=== PATIENT | female | born 1945 | race Caucasian/White ===

== ENCOUNTER 2020-09-13 14:39 | Emergency (ER) | payer MEDICARE, OTHER ==
[2020-09-13] MEDS ORDERED: Boostrix 0.5 ML (Tdap) VIAL ONE (16:09)
--- NOTE | 2020-09-13 16:18 | CT ---
CT HEAD WITHOUT CONTRAST: Date: 09/13/2020 HISTORY: Fall with injury to head. FINDINGS: Ventricles have normal size and position. There is no evidence of intracranial hemorrhage. No evidenc e of edema, mass, or infarct. Mild ischemic white matter changes. Small scalp hematoma over the right frontal bone. Paranasal sinuses appear clear. No evidence of skull fracture. IMPRESSION: No acute intracranial abnormality. POS: [facility]
--- NOTE | 2020-09-13 16:25 | CT ---
Exam: Facial bone CT without contrast HISTORY: Patient tripped and fell in parking lot. Contusion and swelling over the right eyebrow regio n. Uncontrolled bleeding. FINDINGS: There is a right frontal and periorbital hematoma. Bilateral ocular lenses are appropriately located. Both globes are intact. Retrobulbar fat is preserv ed. Symmetric attenuation of the optic nerves and ocular rectus muscles. Adequate aeration of the paranasal sinuses and mastoid air cells. No significant nasal soft tissue swelling. Nasal bones are intact. On the coronal reformatted images, bilateral ostiomeatal complexes are patent. Intact nasal septum. Osseous margins of the sinuses and orbits are maintained Zygomatic arches and pterygoid plates are intact. Mandible and maxilla is intact. Patient is edentulo us. Degenerative changes in the right temporomandibular joint space. Unremarkable upper cervical spine There are varying degrees of central canal stenosis and foraminal narrowing on the basis of degenerat vincent change IMPRESSION: 1. Right periorbital posttraumatic swelling and hematoma. 2. No evidence of a maxillofacial fracture.
== END 2020-09-13 16:45 | disposition home or self-care (01) ==
LOC: ERS 14:39
DX: S00.11XA Contusion of right eyelid and periocular area, initial encounter (principal); S00.83XA Contusion of other part of head, initial encounter; I10 Essential (primary) hypertension; F41.9 Anxiety disorder, unspecified; Z79.899 Other long term (current) drug therapy; W01.0XXA Fall on same level from slipping, tripping and stumbling without subsequent striking against object, initial encounter; Y92.481 Parking lot as the place of occurrence of the external cause
CPT/HCPCS: 70450; 70486; 90471; 90715

== ENCOUNTER 2021-06-22 14:08 | Inpatient (IN) | payer MEDICARE, OTHER ==
[~2021-06-22 14:08] MED LIST: Iopamidol-370 76% 500 ML 1 ML ONE
[2021-06-22] MEDS ORDERED: Ondansetron PF 4 MG/2 ML Vial ONE (14:26)
[2021-06-22 14:49] LABS: #Basophils 0.1 thou/uL (0.0-0.2); #Eosinphils 0.1 thou/uL (0.0-0.7); #Lymphocytes 2.1 thou/uL (1.20-3.40); #Monocytes 0.5 thou/uL (0.11-0.59); %Basophils 0.3 % (0.0-1.0); %Eosinophils 0.4 % (0.0-10.0); %Lymphocytes 11.8 % (21.0-51.0); %Monocytes 2.9 % (0.0-10.0); %Neutrophils 84.6 % (42.0-75.0); Hemoglobin 14.3 g/dL (12.0-16.0); Mean Corpuscular HGB CONC 34.5 g/dL (32.0-36.0); Mean Corpuscular Hemoglobin 33.4 pg (27.0-31.0); Mean Corpuscular Volume 96.9 fL (78.0-98.0); Mean Platelet Volume 7.3 fL (7.4-10.4); Platelet Count 295 thou/uL (130-400); RBC Distribution Width 13.4 % (11.5-14.5); Red Blood Cell (RBC) Count 4.27 mill/uL (4.20-5.40); White Blood Cell (WBC) Count 17.7 thou/uL (4.8-10.8)
[2021-06-22 15:12] LABS: ALT (SGPT) 109 U/L (8-55); AST (SGOT) 157 U/L (5-34); Albumin 4.1 g/dL (3.4-4.8); Alkaline Phosphatase 185 U/L (40-110); Anion Gap 17 mmol/L (10-20); BUN (Urea Nitrogen) 13 mg/dL (9.8-20.1); Bilirubin, Total 5.2 mg/dL (0.2-1.2); Calc. Creatinine Clearance 0 mL/min (70-130); Calcium 9.8 mg/dL (7.8-10.44); Carbon Dioxide 22 mmol/L (23-31); Chloride 103 mmol/L (98-107); Globulin 2.7 g/dL (2.4-3.5); Glucose 145 mg/dL (83-110); Potassium 3.3 mmol/L (3.5-5.1); Protein, Total 6.8 g/dL (5.8-8.1); Sodium 139 mmol/L (136-145)
[2021-06-22] MEDS ORDERED: Pantoprazole 40 MG VIAL ONE (15:23)
[2021-06-22 15:25] LABS: Lipase 4141 U/L (8-78)
[2021-06-22] MEDS ORDERED: Fentanyl 100 MCG/2 ML VIAL ONE ×2 (16:36→18:18)
[2021-06-22] MEDS ORDERED: Piperacillin/Tazobactam 4.5 GM VIAL ONE ×2 (16:36→16:41)
[2021-06-22 17:29] LABS: Bilirubin Negative (Negative); Blood, Urine Negative (Negative); Clarity Clear (Clear); Glucose, Urine (Dipstick) Normal (Negative); Ketone, Urine Negative (Negative); Leukocyte Negative Leu/uL (Negative); Nitrite Negative (Negative); Protein, Urine (Dipstick) 20 mg/dL (Neg-Trace); Specific Gravity, Urine 1.029 (1.002-1.036); Urobilinogen Normal mg/dL (Less than 2); pH, Urine 5.5 (5.0-9.0)
[2021-06-22] MEDS ORDERED: Ondansetron PF 4 MG/2 ML Vial IVP PRN (17:57)
[2021-06-22] MEDS ORDERED: Ondansetron ODT 4 MG TAB PO PRN (17:57)
[2021-06-22] MEDS ORDERED: Sodium Chloride 0.9% 1,000 ML IV SCH (18:00)
[2021-06-22] MEDS ORDERED: Morphine 2 MG/ML VIAL SLOW IVP PRN (18:07)
[2021-06-22] MEDS ORDERED: Electrolyte Replacement Protocol 1 EACH FS SCH (18:15)
[2021-06-22 18:28] LABS: Troponin I 0.025 ng/mL (< 0.028)
[2021-06-22 18:51] LABS: SARS-CoV-2 NAA Rapid Test Not Detected (NotDetected)
[2021-06-22] MEDS ORDERED: hydrALAZINE 20 MG/ML VIAL SLOW IVP PRN (19:00)
[2021-06-22] MEDS ORDERED: Lactated Ringer's 1,000 ML IV SCH (19:00)
[2021-06-22] MEDS ORDERED: Sodium Chloride 0.9% (PF) 10 ML VIAL FS PRN (19:15)
[2021-06-22] MEDS ORDERED: Electrolyte Replacement Protocol FS PRN (19:15)
[2021-06-22] MEDS: Pantoprazole 40 MG VIAL IVP SCH (19:36)
[2021-06-22] MEDS: Piperacillin/Tazobactam 3.375 GM in Sodium Chloride 0.9% 100 ML IVPB SCH (19:43)
[2021-06-22 19:49] VITALS: BMI 35.5
[2021-06-22] MEDS: Sodium Chloride 0.9% 1,000 ML IV SCH (20:00)
[2021-06-22 20:42] LABS: Troponin I 0.024 ng/mL (< 0.028)
[2021-06-22] MEDS ORDERED: Pantoprazole 40 MG VIAL IVP SCH (21:00)
[2021-06-22] MEDS ORDERED: Piperacillin/Tazobactam 3.375 GM in Sodium Chloride 0.9% 100 ML IVPB SCH ×2 (21:00→23:59)
[2021-06-22] MEDS ORDERED: Methyl Salicylate/Menthol 85 GM TUBE TOP PRN (21:27)
[2021-06-23] MEDS: Piperacillin/Tazobactam 3.375 GM in Sodium Chloride 0.9% 100 ML IVPB SCH ×3 (05:00→21:08)
[2021-06-23] MEDS: Sodium Chloride 0.9% 1,000 ML IV SCH ×2 (05:02→18:10)
[2021-06-23 07:13] LABS: #Lymphocytes 0.5 thou/uL (1.20-3.40); #Monocytes 0.4 thou/uL (0.11-0.59); #Neutrophils 10.2 thou/uL (1.40-6.50); %Eosinophils 0.1 % (0.0-10.0); %Lymphocytes 4.1 % (21.0-51.0); %Monocytes 3.9 % (0.0-10.0); Hemoglobin 13.1 g/dL (12.0-16.0); Mean Corpuscular HGB CONC 34.6 g/dL (32.0-36.0); Mean Corpuscular Hemoglobin 33.8 pg (27.0-31.0); Mean Corpuscular Volume 97.6 fL (78.0-98.0); Mean Platelet Volume 7.2 fL (7.4-10.4); Platelet Count 184 thou/uL (130-400); RBC Distribution Width 13.5 % (11.5-14.5); Red Blood Cell (RBC) Count 3.88 mill/uL (4.20-5.40); White Blood Cell (WBC) Count 11.1 thou/uL (4.8-10.8)
[2021-06-23 07:15] LABS: ALT (SGPT) 138 U/L (8-55); AST (SGOT) 141 U/L (5-34); Albumin 3.4 g/dL (3.4-4.8); Alkaline Phosphatase 177 U/L (40-110); Anion Gap 14 mmol/L (10-20); BUN (Urea Nitrogen) 13 mg/dL (9.8-20.1); Bilirubin, Total 5.8 mg/dL (0.2-1.2); Calc. Creatinine Clearance 64 mL/min (70-130); Calcium 8.6 mg/dL (7.8-10.44); Carbon Dioxide 24 mmol/L (23-31); Chloride 107 mmol/L (98-107); Globulin 2.5 g/dL (2.4-3.5); Glucose 115 mg/dL (83-110); Lipase 132 U/L (8-78); Potassium 3.9 mmol/L (3.5-5.1); Protein, Total 5.9 g/dL (5.8-8.1); Sodium 141 mmol/L (136-145)
[2021-06-23] MEDS: Pantoprazole 40 MG VIAL IVP SCH ×2 (08:50→21:08)
[2021-06-23] MEDS ORDERED: SUGAMMADEX SODIUM 200 MG/2 ML VIAL ONE (09:37)
[2021-06-23] MEDS ORDERED: Ketamine 50 MG/ML (10ML VIAL) ONE (09:37)
[2021-06-23] MEDS ORDERED: Fentanyl 100 MCG/2 ML VIAL ONE (09:37)
[2021-06-23] MEDS ORDERED: Famotidine/PF 20 mg/2ml Vial ONE (09:37)
[2021-06-23] MEDS ORDERED: Iothalamate Meglumine 60% 50 ML VIAL FS ONE (09:41)
[2021-06-23] MEDS ORDERED: Lidocaine 1% w/Epinephrine 1:100K 20 ML VIAL ONE (09:41)
[2021-06-23] MEDS ORDERED: Bupivacaine 0.25% HCL 30 ML VIAL ONE (09:41)
[2021-06-23] MEDS ORDERED: Indomethacin 50 MG SUPP ONE (09:52)
[2021-06-23] MEDS ORDERED: Lidocaine 1% PF 5 ML VIAL ONE (11:21)
[2021-06-23] MEDS ORDERED: Succinylcholine 200 MG/10 ml SYRINGE FS ONE (11:21)
[2021-06-23] MEDS ORDERED: PHENYLEPHRINE-NS 100 MCG/ML 10 ML SYRINGE ONE (11:21)
[2021-06-23] MEDS ORDERED: PROPOFOL 200 MG/20 ML VIAL ONE (11:21)
[2021-06-23] MEDS ORDERED: Rocuronium Bromide 10 MG/ML (10ML VIAL) ONE (11:21)
[2021-06-23] MEDS ORDERED: Dexamethasone 20 MG/5 ML VIAL ONE (11:21)
[2021-06-23] MEDS ORDERED: Glycopyrrolate 0.2 MG/ML 5 ML SYRINGE ONE (11:21)
[2021-06-23] MEDS ORDERED: ePHEDrine 50 MG/ML VIAL ONE (11:21)
[2021-06-23] MEDS ORDERED: Ondansetron PF 4 MG/2 ML Vial ONE (11:21)
[2021-06-24] MEDS: Sodium Chloride 0.9% 1,000 ML IV SCH (01:05)
[2021-06-24] MEDS: Piperacillin/Tazobactam 3.375 GM in Sodium Chloride 0.9% 100 ML IVPB SCH (05:45)
[2021-06-24 06:50] LABS: #Eosinphils 0.1 thou/uL (0.0-0.7); #Lymphocytes 0.4 thou/uL (1.20-3.40); #Monocytes 0.3 thou/uL (0.11-0.59); #Neutrophils 6.9 thou/uL (1.40-6.50); %Eosinophils 0.9 % (0.0-10.0); %Lymphocytes 5.4 % (21.0-51.0); %Monocytes 4.4 % (0.0-10.0); %Neutrophils 89.3 % (42.0-75.0); Hemoglobin 11.1 g/dL (12.0-16.0); Mean Corpuscular HGB CONC 34.1 g/dL (32.0-36.0); Mean Corpuscular Volume 99.7 fL (78.0-98.0); Mean Platelet Volume 7.9 fL (7.4-10.4); Platelet Count 157 thou/uL (130-400); RBC Distribution Width 13.6 % (11.5-14.5); Red Blood Cell (RBC) Count 3.26 mill/uL (4.20-5.40); White Blood Cell (WBC) Count 7.7 thou/uL (4.8-10.8)
[2021-06-24 07:02] LABS: Phosphorus 3.7 mg/dL (2.3-4.7)
[2021-06-24 07:06] LABS: ALT (SGPT) 107 U/L (8-55); AST (SGOT) 98 U/L (5-34); Albumin 3.1 g/dL (3.4-4.8); Alkaline Phosphatase 164 U/L (40-110); Anion Gap 11 mmol/L (10-20); BUN (Urea Nitrogen) 18 mg/dL (9.8-20.1); Bilirubin, Total 3.5 mg/dL (0.2-1.2); Calc. Creatinine Clearance 61 mL/min (70-130); Calcium 8.1 mg/dL (7.8-10.44); Carbon Dioxide 25 mmol/L (23-31); Chloride 106 mmol/L (98-107); Globulin 2.5 g/dL (2.4-3.5); Glucose 114 mg/dL (83-110); Lipase 13 U/L (8-78); Magnesium 1.8 mg/dL (1.6-2.6); Potassium 4.1 mmol/L (3.5-5.1); Protein, Total 5.6 g/dL (5.8-8.1); Sodium 138 mmol/L (136-145)
[2021-06-24] MEDS ORDERED: Magnesium 2 GM/50 ML 2 GM in Premix Bag 1 BAG IVPB SCH (07:15)
[2021-06-24] MEDS: Pantoprazole 40 MG VIAL IVP SCH (08:10)
[2021-06-24 10:43] VITALS: BP 127/72; TEMP 97.3
== END 2021-06-24 11:04 | disposition home or self-care (01) | DRG 417 ==
LOC: ERS 14:08 → T4-A 17:35
PROVIDERS: ADMIT Family Medicine; ATTEND Internal Medicine
PROC: 0FT44ZZ Resection of Gallbladder, Percutaneous Endoscopic Approach (ICD-10-PCS; principal; 2021-06-23)
PROC: 0F798ZZ Dilation of Common Bile Duct, Via Natural or Artificial Opening Endoscopic (ICD-10-PCS; 2021-06-23)
PROC: 0FD98ZX Extraction of Common Bile Duct, Via Natural or Artificial Opening Endoscopic, Diagnostic (ICD-10-PCS; 2021-06-23)
DX: K80.01 Calculus of gallbladder with acute cholecystitis with obstruction (principal); K85.10 Biliary acute pancreatitis without necrosis or infection; K20.90 Esophagitis, unspecified without bleeding; E87.6 Hypokalemia; F39 Unspecified mood [affective] disorder; H35.30 Unspecified macular degeneration; E78.5 Hyperlipidemia, unspecified; K83.8 Other specified diseases of biliary tract; K57.90 Diverticulosis of intestine, part unspecified, without perforation or abscess without bleeding; M43.16 Spondylolisthesis, lumbar region; I35.0 Nonrheumatic aortic (valve) stenosis; N18.30 Chronic kidney disease, stage 3 unspecified; I12.9 Hypertensive chronic kidney disease with stage 1 through stage 4 chronic kidney disease, or unspecified chronic kidney disease; Z90.710 Acquired absence of both cervix and uterus; Z88.8 Allergy status to other drugs, medicaments and biological substances; Z88.1 Allergy status to other antibiotic agents
CPT/HCPCS: 36415; 71045; 74177; 74330; 76705; 80053; 81003; 83690; 83735; 84100; 84484; 85025; 88304; 90471; 90732; 93005; 93306; 93880; 96365; 96375; C9113; G0009; J1100; J1610; J2270; J2405; J2543; J2704; J3010; J3475; J3490; J7050; Q9961; Q9967; S0020; S0028; U0002